=== PATIENT | female | born 1975 | race Caucasian/White ===

== ENCOUNTER 2017-02-11 14:35 | Emergency (ER) | payer OTHER | END 2017-02-11 15:41 | disposition home or self-care (01) | LOC: M ED 14:35 | DX: L02.01 Cutaneous abscess of face (principal); K02.9 Dental caries, unspecified; J44.9 Chronic obstructive pulmonary disease, unspecified; J45.909 Unspecified asthma, uncomplicated; F32.9 Major depressive disorder, single episode, unspecified; F17.200 Nicotine dependence, unspecified, uncomplicated; Z86.718 Personal history of other venous thrombosis and embolism; Z79.899 Other long term (current) drug therapy; Z88.6 Allergy status to analgesic agent; Z88.8 Allergy status to other drugs, medicaments and biological substances | CPT/HCPCS: 99282 ==

== ENCOUNTER 2017-03-24 22:31 | Emergency (ER) | payer OTHER ==
[2017-03-24 23:27] LABS: BASO # 0.1 10^3/uL (0.0-0.2); BASO % 0.5 % (0.0-1.0); EOS # 0.3 10^3/uL (0.0-0.50); HEMATOCRIT 42.5 % (36.0-47.0); HEMOGLOBIN 15.2 g/dl (12.0-16.0); IMMATURE GRANULOCYTE % 0.3 % (0-3.0); LYMPH # 3.3 10^3/uL (1.5-4.5); LYMPH % 35.5 % (24.0-44.0); MEAN CORPUSCULAR HEMOGLOBIN 33.3 pg (27.0-33.0); MEAN CORPUSCULAR HGB CONC 35.8 g/dl (32.0-36.5); MONO # 0.6 10^3/uL (0.0-0.8); MONO % 6.2 % (0.0-5.0); NEUTROPHILS % 54.5 % (36.0-66.0); PLATELET COUNT, AUTOMATED 227 10^3/uL (150-450); RED BLOOD COUNT 4.57 10^6/uL (4.00-5.40); WHITE BLOOD COUNT 9.2 10^3/uL (4.0-10.0)
[2017-03-24] MEDS: MORPHINE 2 MG/ML 1ML SYRINGE (J2270) IV (23:30)
[2017-03-24] MEDS ORDERED: ISOVUE-370 76% 100ML VIAL (Q9967) As Ordered (23:35)
[2017-03-24 23:52] LABS: ALBUMIN 3.6 GM/DL (3.2-5.2); ALBUMIN/GLOBULIN RATIO 0.92 (1.00-1.93); ALKALINE PHOSPHATASE 107 U/L (45-117); ALT/SGPT 11 U/L (12-78); ANION GAP 8 MEQ/L (8-16); AST/SGOT 7 U/L (7-37); BILIRUBIN,TOTAL 0.4 MG/DL (0.2-1.0); BLOOD UREA NITROGEN 9 MG/DL (7-18); CALCIUM LEVEL 8.2 MG/DL (8.5-10.1); CARBON DIOXIDE LEVEL 29 MEQ/L (21-32); CHLORIDE LEVEL 104 MEQ/L (98-107); CREATININE FOR GFR 0.63 MG/DL (0.55-1.30); GLOMERULAR FILTRATION RATE > 60.0 (>58); GLUCOSE, FASTING 315 MG/DL (70-100); POTASSIUM SERUM 3.8 MEQ/L (3.5-5.1); SODIUM LEVEL 141 MEQ/L (136-145); TOTAL PROTEIN 7.5 GM/DL (6.4-8.2)
[2017-03-25] MEDS: NS 1,000 ML IV (00:12)
[2017-03-25] MEDS ORDERED: HumuLIN R (REGULAR) INSULIN (NovoLIN R) **100U/ML** PER UNIT IV (00:15)
[2017-03-25] MEDS: PERCOCET 5MG/325MG TAB PO (01:37)
== END 2017-03-25 01:42 | disposition home or self-care (01) ==
LOC: M ED 03-25 01:42
DX: J32.9 Chronic sinusitis, unspecified (principal); R73.09 Other abnormal glucose; K08.89 Other specified disorders of teeth and supporting structures; J44.9 Chronic obstructive pulmonary disease, unspecified; M54.5 Low back pain; G89.29 Other chronic pain; F17.200 Nicotine dependence, unspecified, uncomplicated; Z88.8 Allergy status to other drugs, medicaments and biological substances; Z88.6 Allergy status to analgesic agent
CPT/HCPCS: Q9967

== ENCOUNTER 2017-06-05 18:59 | Emergency (ER) | payer OTHER | END 2017-06-05 21:20 | disposition left against medical advice (07) | LOC: M ED 18:59 | DX: K13.79 Other lesions of oral mucosa (principal); Z53.21 Procedure and treatment not carried out due to patient leaving prior to being seen by health care provider; Z88.6 Allergy status to analgesic agent; Z88.8 Allergy status to other drugs, medicaments and biological substances ==

== ENCOUNTER 2017-06-17 16:58 | Emergency (ER) | payer OTHER ==
[2017-06-17] MEDS: PENICILLIN V POTASSIUM 500 MG TAB PO (16:52)
[2017-06-17] MEDS: NORCO, ANEXSIA 5/325MG TABLET (HYDROcodone/ACETAMINOPHEN) PO (16:52)
== END 2017-06-17 17:25 | disposition home or self-care (01) ==
LOC: M ED 16:58
DX: K08.89 Other specified disorders of teeth and supporting structures (principal); F17.200 Nicotine dependence, unspecified, uncomplicated; Z88.8 Allergy status to other drugs, medicaments and biological substances; Z79.899 Other long term (current) drug therapy
CPT/HCPCS: 99282

== ENCOUNTER 2017-08-18 04:29 | Emergency (ER) | payer OTHER ==
[2017-08-18] MEDS: NORCO 5/325MG TABLET (BULK FOR ED) PO (05:34)
== END 2017-08-18 05:39 | disposition home or self-care (01) ==
LOC: M ED 04:29
DX: L02.411 Cutaneous abscess of right axilla (principal); J45.909 Unspecified asthma, uncomplicated; K21.9 Gastro-esophageal reflux disease without esophagitis; J44.9 Chronic obstructive pulmonary disease, unspecified; Z86.718 Personal history of other venous thrombosis and embolism; Z88.6 Allergy status to analgesic agent; Z88.8 Allergy status to other drugs, medicaments and biological substances; Z79.899 Other long term (current) drug therapy
CPT/HCPCS: 87186

== ENCOUNTER 2017-08-20 12:59 | Emergency (ER) | payer OTHER | END 2017-08-20 14:37 | disposition home or self-care (01) | LOC: M ED 12:59 | DX: Z48.01 Encounter for change or removal of surgical wound dressing (principal); L02.411 Cutaneous abscess of right axilla; J44.9 Chronic obstructive pulmonary disease, unspecified; K21.9 Gastro-esophageal reflux disease without esophagitis; F33.9 Major depressive disorder, recurrent, unspecified; Z86.718 Personal history of other venous thrombosis and embolism; Z79.899 Other long term (current) drug therapy; Z88.8 Allergy status to other drugs, medicaments and biological substances; F17.210 Nicotine dependence, cigarettes, uncomplicated | CPT/HCPCS: 99283 ==

== ENCOUNTER → 2017-08-29 | Outpatient (CLI) | payer OTHER ==
[2017-08-29 13:09] LABS: CONTROL LINE HCG INT CTR LINE PRESENT; HCG, SERUM QUALITATIVE NEGATIVE (NEGATIVE)
== END ==
LOC: M LAB 12:28
DX: Z30.42 Encounter for surveillance of injectable contraceptive (principal); N94.9 Unspecified condition associated with female genital organs and menstrual cycle
CPT/HCPCS: 84703

== ENCOUNTER 2017-09-14 12:00 | Emergency (ER) | payer OTHER | END 2017-09-14 15:51 | disposition left against medical advice (07) | LOC: M ED 12:00 | DX: Z51.89 Encounter for other specified aftercare (principal); Z53.21 Procedure and treatment not carried out due to patient leaving prior to being seen by health care provider ==

== ENCOUNTER 2017-09-16 14:07 | Emergency (ER) | payer OTHER ==
[2017-09-16] MEDS: LIDOCAINE W/EPINEPHRINE 1% 20ML VIAL SC (15:20)
== END 2017-09-16 15:56 | disposition home or self-care (01) ==
LOC: M ED 14:07
DX: L02.411 Cutaneous abscess of right axilla (principal); J44.9 Chronic obstructive pulmonary disease, unspecified; F32.9 Major depressive disorder, single episode, unspecified; Z86.718 Personal history of other venous thrombosis and embolism
CPT/HCPCS: 87186

== ENCOUNTER 2017-10-15 13:50 | Emergency (ER) | payer OTHER ==
[2017-10-15] MEDS: NORCO, ANEXSIA 5/325MG TABLET (HYDROcodone/ACETAMINOPHEN) PO (14:43)
== END 2017-10-15 14:54 | disposition home or self-care (01) ==
LOC: M ED 13:50
DX: R10.2 Pelvic and perineal pain (principal); L25.9 Unspecified contact dermatitis, unspecified cause; J45.909 Unspecified asthma, uncomplicated; F32.9 Major depressive disorder, single episode, unspecified; F17.210 Nicotine dependence, cigarettes, uncomplicated; Z88.6 Allergy status to analgesic agent; Z88.8 Allergy status to other drugs, medicaments and biological substances
CPT/HCPCS: 99284

== ENCOUNTER 2017-11-28 17:13 | Emergency (ER) | payer OTHER ==
[2017-11-28] MEDS: BACLOFEN 10 MG TAB PO (19:09)
== END 2017-11-28 20:03 | disposition home or self-care (01) ==
LOC: M ED 17:13
DX: Z04.1 Encounter for examination and observation following transport accident (principal); S13.4XXA Sprain of ligaments of cervical spine, initial encounter; V43.62XA Car passenger injured in collision with other type car in traffic accident, initial encounter; Y92.410 Unspecified street and highway as the place of occurrence of the external cause; J44.9 Chronic obstructive pulmonary disease, unspecified; F33.9 Major depressive disorder, recurrent, unspecified; K21.9 Gastro-esophageal reflux disease without esophagitis; F17.210 Nicotine dependence, cigarettes, uncomplicated; Z86.718 Personal history of other venous thrombosis and embolism; Z88.8 Allergy status to other drugs, medicaments and biological substances
CPT/HCPCS: 72125

== ENCOUNTER → 2017-12-04 | Outpatient (REF) | payer OTHER ==
[2017-12-04 22:04] LABS: APPEARANCE, URINE CLOUDY (CLEAR); BACTERIA, URINE AUTO 2+ (NEGATIVE); BILIRUBIN, URINE AUTO NEGATIVE (NEGATIVE); BLOOD, URINE BLOOD 3+ (NEGATIVE); COLOR, URINE YELLOW (YELLOW); GLUCOSE, URINE (UA) AUTO 3+ mg/dL (NEGATIVE); KETONE, URINE AUTO NEGATIVE (NEGATIVE); LEUKOCYTE ESTERASE, URINE AUTO 2+ (NEGATIVE); NITRITE, URINE AUTO NEGATIVE (NEGATIVE); PROTEIN, URINE AUTO 2+ mg/dL (NEGATIVE); RBC, URINE AUTO TNTC /HPF (0-3); SPECIFIC GRAVITY URINE AUTO 1.039 (1.002-1.035); SQUAMOUS EPITHELIAL CELL UR AU 1 /HPF (0-6); UROBILINOGEN, URINE AUTO 0.2 mg/dL (0.0-2.0); WBC, URINE AUTO TNTC /HPF (0-3)
== END ==
LOC: M LAB REF 10:22
DX: N39.0 Urinary tract infection, site not specified (principal)
CPT/HCPCS: 81001

== ENCOUNTER → 2018-02-15 | Outpatient (CLI) | payer OTHER ==
[~2018-02-15] MED LIST: /MOXI40TA PO; ADV250INH INH; ALB2.5NEB INH; ALBU17IN INH; ALBU83IN; AUGM500T34 PO; AUGM875T27 PO; AUGM875T28 PO; BACL10TA2 PO; BACT800T5 PO; CARD120C3 PO; CLIN150C14 PO; DUONSOL IN; IBUP-1114 PO; KEFL500C17 PO; METF500T13; METF500T13 PO; NORCOTAB PO; PENI250T57 PO; PERCOCET PO; PRED1TAB32 PO; PRIL20CA OR; SING10TA31 OR; SING10TA32 PO; TYLE325T5 PO; TYLE500T78 PO; VENTAER; [UNRECOGNIZED DRUG - OTHER] INH
[2018-02-15 13:53] LABS: HCG, SERUM QUALITATIVE NEGATIVE (NEGATIVE)
== END ==
LOC: M LAB 12:22
PROVIDERS: ATTEND Advanced Practice Midwife
DX: N92.6 Irregular menstruation, unspecified (principal)

== ENCOUNTER 2018-05-24 18:53 | Emergency (ER) | payer OTHER ==
[~2018-05-24] VITALS: Ht 162.6 cm; Wt 78.2 kg
[2018-05-24 18:53] VITALS: BP 143/66
[~2018-05-24 18:53] MED LIST changes: -/MOXI40TA PO; +AVEL1TAB2 PO; +HYDR-3715 PO; -NORCOTAB PO; +OXYC1TAB23 PO; -PERCOCET PO
[2018-05-24] MEDS ORDERED: SING10TA32 PO (18:58)
[2018-05-24] MEDS ORDERED: BACT800T5 PO (19:19)
[2018-05-24] MEDS ORDERED: NORC1TAB7 PO (19:19)
== END 2018-05-24 19:36 | disposition home or self-care (01) ==
LOC: M ED 18:53
DX: L02.411 Cutaneous abscess of right axilla (principal); J44.9 Chronic obstructive pulmonary disease, unspecified; J45.909 Unspecified asthma, uncomplicated; K21.9 Gastro-esophageal reflux disease without esophagitis; F33.9 Major depressive disorder, recurrent, unspecified; Z79.899 Other long term (current) drug therapy; Z88.8 Allergy status to other drugs, medicaments and biological substances

== ENCOUNTER 2018-05-31 19:33 | Emergency (ER) | payer OTHER ==
[~2018-05-31] VITALS: Ht 162.6 cm; Wt 78.2 kg
[~2018-05-31 19:33] MED LIST changes: +NORC1TAB7 PO
[2018-05-31] MEDS ORDERED: LIDOCAINE 2% W/EPIN INJ 20ML **PRES FREE As Ordered ONE (20:39)
[2018-05-31] MEDS ORDERED: LIDOCAINE 2% W/EPIN INJ 20ML **PRES FREE INJ ONE (20:45)
[2018-05-31] MEDS ORDERED: NORC1TAB7 PO (21:09)
[2018-05-31] MEDS ORDERED: NORCO 5/325MG TABLET (BULK FOR ED) PO ONE (21:15)
[2018-05-31 21:17] VITALS: BP 164/5
== END 2018-05-31 21:42 | disposition home or self-care (01) ==
LOC: M ED 19:33
DX: L02.411 Cutaneous abscess of right axilla (principal); J44.9 Chronic obstructive pulmonary disease, unspecified; Z86.718 Personal history of other venous thrombosis and embolism; F17.210 Nicotine dependence, cigarettes, uncomplicated; Z88.8 Allergy status to other drugs, medicaments and biological substances; Z79.899 Other long term (current) drug therapy

== ENCOUNTER 2018-08-27 21:45 | Emergency (ER) | payer OTHER ==
[~2018-08-27] VITALS: Ht 162.6 cm; Wt 77.4 kg
[2018-08-27 21:45] VITALS: BP 131/82
[2018-08-27 23:21] LABS: URINE PREG TEST NEGATIVE (NEGATIVE)
[2018-08-27] MEDS ORDERED: KEFL500C17 PO (23:27)
[2018-08-27] MEDS ORDERED: PYRI1TAB5 PO (23:27)
[2018-08-27] MEDS ORDERED: CEPHALEXIN 500 MG CAP PO ONE (23:30)
[2018-08-27] MEDS ORDERED: PHENAZOPYRIDINE 100 MG TAB PO ONE (23:30)
== END 2018-08-27 23:37 | disposition home or self-care (01) ==
LOC: M ED 21:45
DX: N10 Acute pyelonephritis (principal); J44.9 Chronic obstructive pulmonary disease, unspecified; Z85.41 Personal history of malignant neoplasm of cervix uteri; Z72.0 Tobacco use; Z79.899 Other long term (current) drug therapy; Z88.8 Allergy status to other drugs, medicaments and biological substances

== ENCOUNTER 2018-12-15 22:26 | Emergency (ER) | payer OTHER ==
[~2018-12-15] VITALS: Ht 162.6 cm; Wt 79.0 kg
[~2018-12-15 22:26] MED LIST changes: +PYRI1TAB5 PO
[2018-12-15 22:27] VITALS: BP 115/75
[2018-12-15] MEDS ORDERED: NORC1TAB7 PO (22:59)
[2018-12-15] MEDS ORDERED: PENI500T PO (22:59)
[2018-12-15] MEDS ORDERED: NORCO, ANEXSIA 5/325MG TABLET (HYDROcodone/ACETAMINOPHEN) PO ONE (23:00)
[2018-12-15] MEDS ORDERED: PENICILLIN V POTASSIUM 500 MG TAB PO ONE (23:00)
== END 2018-12-15 23:25 | disposition home or self-care (01) ==
LOC: M ED 22:26
DX: K04.7 Periapical abscess without sinus (principal); Z88.8 Allergy status to other drugs, medicaments and biological substances; Z79.51 Long term (current) use of inhaled steroids; Z79.899 Other long term (current) drug therapy

== ENCOUNTER 2019-01-11 16:55 | Inpatient (IN) | payer OTHER ==
[~2019-01-11] VITALS: Ht 163.8 cm; Wt 80.5 kg
[~2019-01-11 16:55] MED LIST changes: -ALBU83IN; +ALBU83IN INH; +PENI500T PO; -VENTAER; +VENTAER INH
[2019-01-11] MEDS ORDERED: ALBUTEROL SULFATE 2.5 MG/0.5 ML INH NEB SOLN As Ordered ONE (17:06)
[2019-01-11] MEDS ORDERED: IPRATROPIUM 0.5MG/ALBUTEROL 2.5MG INH SOL UD 3ML (DUONEB)(J7620) NEB ONE (17:15)
[2019-01-11 17:20] LABS: HEMATOCRIT 47.3 % (36.0-47.0); HEMOGLOBIN 15.6 g/dl (12.0-15.5); MEAN CORPUSCULAR HEMOGLOBIN 32.2 pg (27.0-33.0); MEAN CORPUSCULAR VOLUME 97.7 fl (80.0-96.0); PLATELET COUNT, AUTOMATED 357 10^3/uL (150-450); RED BLOOD COUNT 4.84 10^6/uL (4.00-5.40)
[2019-01-11 17:23] LABS: WHITE BLOOD COUNT 17.6 10^3/uL (4.0-10.0)
[2019-01-11] MEDS ORDERED: fentaNYL 100 MCG/2 ML INJECTION (J3010) As Ordered ONE (17:32)
[2019-01-11 17:38] LABS: INR 1.21
[2019-01-11] MEDS ORDERED: PIPERACILLIN/TAZOBACTAM SOD 4.5 GM in D5W MINI-BAG PLUS 50 ML IV ONE (17:45)
[2019-01-11] MEDS ORDERED: ONDANSETRON 4MG/2ML VIAL (J2405) IV ONE ×2 (17:45→18:45)
[2019-01-11] MEDS ORDERED: fentaNYL 100 MCG/2 ML INJECTION (J3010) IV ONE ×2 (17:45→18:30)
[2019-01-11] MEDS ORDERED: ISOVUE-370 76% 100ML VIAL (Q9967) As Ordered ONE (17:47)
[2019-01-11 17:51] LABS: ATYPICAL LYMPH 7 % (0-5); BASOPHILS 1 % (0-1); LYMPHOCYTES 36 % (16-44); METAMYELOCYTES 1 % (0-0); MONOCYTES 1 % (0-5); NEUTROPHILS 52 % (28-66); PLATELET ESTIMATE NORMAL (NORMAL)
--- NOTE | 2019-01-11 17:55 | REP ---
AP PORTABLE CHEST: 01/11/2019. Clinical history: Dyspnea and cough. Comparison: 11/05/2013. Findings: Portable upright chest shows some left ventricular configuration of the heart. There is some venous hypertension. I see no dense consolidation with air bronchograms. There are a few cuffed bronchi in the perihilar regions that may reflect reactive airway disease or bronchitis. The airway and aorta were unremarkable. There is no widening of the mediastinum. The CP angles appear sharply defined. Bones are unremarkable. Impression: 1. Perihilar changes of bronchitis or reactive airway disease with some mild venous hypertension, prominence of the cardiac silhouette which may be exaggerated by technique and no edema, effusion or dense consolidation. Electronically Signed by Maverick Lipscomb MD 01/11/2019 08:02 P
[2019-01-11 18:03] LABS: ALBUMIN 3.3 GM/DL (3.2-5.2); ALT/SGPT 38 U/L (12-78); BILIRUBIN,DIRECT 0.1 MG/DL (0.0-0.2); BILIRUBIN,TOTAL 0.3 MG/DL (0.2-1.0); BLOOD UREA NITROGEN 6 MG/DL (7-18); CALCIUM LEVEL 8.4 MG/DL (8.5-10.1); CARBON DIOXIDE LEVEL 24 MEQ/L (21-32); CHLORIDE LEVEL 103 MEQ/L (98-107); CK-MB VALUE MASS < 1.0 NG/ML (<3.6); CPK CREATINE PHOSPHOKINASE 72 U/L (26-192); CREATININE FOR GFR 0.79 MG/DL (0.55-1.30); GLOMERULAR FILTRATION RATE > 60.0 (>58); GLUCOSE, FASTING 410 MG/DL (70-100); MB/CK RELATIVE INDEX 1.39 (< OR =4); NT-PRO BNP 2594 PG/ML (<125); POTASSIUM SERUM 4.2 MEQ/L (3.5-5.1); SODIUM LEVEL 138 MEQ/L (136-145); TOTAL PROTEIN 7.2 GM/DL (6.4-8.2); TROPONIN I < 0.02 NG/ML (< 0.10)
[2019-01-11] MEDS ORDERED: NS 1,000 ML IV ONE ×3 (18:15→18:45)
[2019-01-11] MEDS ORDERED: HumuLIN R (REGULAR) INSULIN (NovoLIN R) **100U/ML** PER UNIT IV ONE (18:15)
--- NOTE | 2019-01-11 18:41 | REPVR ---
PROCEDURE INFORMATION: Exam: CT Chest With Contrast Exam date and time: 01/11/2019 5:44 PM Age: 43 years old Clinical history: Other: Hypoxia TECHNIQUE: Imaging protocol: Computed tomography of the chest with intravenous contrast. Radiation optimization: All CT scans at this facility use at least one of these dose optimization techniques: automated exposure control; mA and/or kV adjustment per patient size (includes targeted exams where dose is matched to clinical indication); or iterative reconstruction. Contrast material: ISOVUE 370; Contrast volume: 100 ml; Contrast route: IV; COMPARISON: CR PORTABLE CHEST X-RAY 01/11/2019 5:08 PM FINDINGS: Lungs: Bilateral small patchy pulmonary parenchymal infiltrates, left greater than right, the largest infiltrate demonstrated in the anterior segment of the multiple lobe measuring 2.9 x 2.3 x 1.8 cm. Findings consistent with multifocal pneumonitis. Pleural space: Unremarkable. No pneumothorax. No pleural effusion. Heart: Left ventricular enlargement associated with mild enlargement of the left atrium measuring 4.2 cm maximal anterior posterior dimension. There is bowing of the interventricular septum into to the right ventricle. Aorta: Unremarkable. No aortic aneurysm. Lymph nodes: Bilateral hilar lymphadenopathy, right greater than left. Bones/joints: Unremarkable. No acute fracture. Soft tissues: Unremarkable. IMPRESSION: 1. Findings consistent with multifocal pneumonitis. Embolic etiologies not excluded. 2. Bilateral hilar lymphadenopathy, right greater than left. 3. Left ventricular and left atrial enlargement, findings which can BE associated with ischemic heart disease, valvular heart disease and cardiomyopathy. Electronically signed by: Lance Oliva On 01/11/2019 18:40:55 PM
--- NOTE | 2019-01-11 18:44 | REPVR ---
PROCEDURE INFORMATION: Exam: CT Abdomen And Pelvis With Contrast Exam date and time: 01/11/2019 5:47 PM Age: 43 years old Clinical history: Other: Hypotension; Additional info: Hypotensive TECHNIQUE: Imaging protocol: Computed tomography of the abdomen and pelvis with intravenous contrast. Radiation optimization: All CT scans at this facility use at least one of these dose optimization techniques: automated exposure control; mA and/or kV adjustment per patient size (includes targeted exams where dose is matched to clinical indication); or iterative reconstruction. Contrast material: ISOVUE 370; Contrast volume: 100 ml; Contrast route: IV; COMPARISON: CT ABD PELVIS WITH CONTRAST 11/06/2015 11:53 PM FINDINGS: Liver: There is a diffuse decrease in hepatic parenchymal density, consistent with fatty infiltration. Gallbladder and bile ducts: There has been a cholecystectomy. Pancreas: There is mild diffuse pancreatic atrophy. Spleen: Normal. No splenomegaly. Adrenals: Normal. No mass. Kidneys and ureters: Normal. No hydronephrosis. Stomach and bowel: Dilated loops of small bowel demonstrated in the mid abdomen associated with a boggy appearance and reduced caliber of the right and proximal transverse colon, findings possibly ischemic related. Small bowel obstruction not excluded. Appendix: No evidence of appendicitis. Intraperitoneal space: Unremarkable. No free air. No significant fluid collection. Vasculature: The aorta demonstrates mild atherosclerotic calcification. Lymph nodes: Unremarkable. No enlarged lymph nodes. Bladder: Santiago catheter within a collapsed urinary bladder. Air within the bladder consistent with iatrogenic etiology. Reproductive: Unremarkable as visualized. Bones/joints: Unremarkable. No acute fracture. Soft tissues: Unremarkable. IMPRESSION: 1. There is a diffuse decrease in hepatic parenchymal density, consistent with fatty infiltration. 2. There has been a cholecystectomy. 3. There is mild diffuse pancreatic atrophy. 4. Dilated loops of small bowel demonstrated in the mid abdomen associated with a boggy appearance and reduced caliber of the right and proximal transverse colon, findings possibly ischemic related. Small bowel obstruction not excluded. Electronically signed by: Lance Oliva On 01/11/2019 18:44:32 PM
[2019-01-11] MEDS ORDERED: ATROPINE SULF 0.4 MG/ML 1ML VIAL (J0461) IV PRN (19:15)
[2019-01-11] MEDS ORDERED: VANCOMYCIN HCL 1,000 MG, VIAL MATE ADAPTER 1 EACH in D5W 250 ML IV SCH (19:15)
[2019-01-11] MEDS ORDERED: AZITHROMYCIN INJ 500 MG, VIAL MATE ADAPTER 1 EACH in D5W 250 ML IV SCH (19:15)
[2019-01-11] MEDS ORDERED: ACETAMINOPHEN TAB 650MG DOSE (2X325MG) PO PRN (19:15)
[2019-01-11] MEDS ORDERED: LR 1,000 ML IV SCH (19:15)
--- NOTE | 2019-01-11 19:34 | HPEPDOC ---
[facility] Medical History & Physical Date of Admission Jan 11, 2019 Date of Service: Jan 11, 2019 Other Provider Tere VILLATORO Attending Physician: MALI PIPER MD History and Physical TIME OF SERVICE: 7:55 PM CHIEF COMPLAINT: Cardiac arrest HISTORY OF PRESENT ILLNESS: The majority of the history is obtained from the patient's who witnessed the event; her mother and several the relatives also the bedside. This is a 43-year-old female who is been having a dry cough, runny nose, and shortness of breath for the last few days; one of her grandchildren has a "viral infection". She has a history of asthma and has been using her nebulizers more frequently. This evening while eating dinner, she suddenly choked on her food, had a lost consciousness, "had a seizure", and vomited. Her turned her onto her side and called EMS. When EMS arrived, they noted that the patient didn't have a pulse and began CPR. She regained consciousness after receiving 1 Shock. Currently the patient is complaining of chest pain, which her attributes to the the rest compressions", back pain and admits to still feeling short of breath. She denies being less active recently because of her URI symptoms. She confirmed that she would like to remain full code. REVIEW OF SYSTEMS: 12 point review of systems negative except as listed in HPI PAST MEDICAL/ SURGICAL HISTORY: Asthma Fatty liver. Status post laparoscopic cholecystectomy Her family denied the patient having any other medical or surgical history SOCIAL HISTORY: She is a smoker FAMILY HISTORY: Her mother has CAD and recently had CABG Multiple family members have heart murmurs. Diabetes "Thyroid disorder" ALLERGIES: Please see below. HOME MEDICATIONS: Please see below. PHYSICAL EXAMINATION: VITAL SIGNS: Please see below. GENERAL APPEARANCE: Well-nourished, well-developed, slightly listless HEENT: Normocephalic, atraumatic, she has mild conjunctival injection, mucous membranes are dry she has tried vomitus around her nares and on her hair. Nonrebreather mask is in place. CARDIOVASCULAR: Slightly tachycardic. There are no murmurs, rubs or gallops. Radial pulses are intact. There is no lower extremity edema LUNGS: She has decreased air entry bilaterally, along with inspiratory wheezing and rhonchi ABDOMEN: Abdomen is soft and nontender on palpation MUSCULOSKELETAL: Range of motion is intact in all 4 extremities INTEGUMENT:Her skin is not flushed, she does not appear pale, she has multiple tattoos NEUROLOGICAL:Nerves II-12 are grossly intact. Speech is not dysarthric PSYCHIATRIC:Heart and oriented to person, place and time. She is able to understand and follow commands. Verbal responses a bit slow LABORATORY DATA: See below. IMAGING: Chest x-ray "Impression: Perihilar changes of bronchitis or reactive airway disease with some mild venous hypertension, prominence of the cardiac silhouette which may be exaggerated by technique and no edema, effusion or dense consolidation. CT chest "IMPRESSION: 1. Findings consistent with multifocal pneumonitis. Embolic etiologies not excluded. 2. Bilateral hilar lymphadenopathy, right greater than left. 3. Left ventricular and left atrial enlargement, indings which can BE associated with ischemic heart disease, valvular heart disease and cardiomyopathy. CT abdomen and pelvis "IMPRESSION: 1. There is a diffuse decrease in hepatic parenchymal density, consistent with fatty infiltration. 2. There has been a cholecystectomy. 3. There is mild diffuse pancreatic atrophy. 4. Dilated loops of small bowel demonstrated in the mid abdomen associated with a boggy appearance and reduced caliber of the right and proximal transverse colon, fi ndings possibly ischemic related. Small bowel obstruction not excluded. " MICROBIOLOGY: Please see below. ASSESSMENT: Ms. Mccormack is a 43-year-old with a past medical history of asthma/COPD, who will be admitted for evaluation after having V. fib arrest and for treatment of asthma/COPD exacerbation. PLAN: 1. Sudden cardiac arrest. Likely due to excessive use of nebulizers due to an asthma exacerbation. Despite her troponin not being elevated, she has lactic acidosis; there is also evidence of cardiomyopathy on CT scan of the chest and ischemia of the bowel and CT the abdomen. EKGs, tachycardia with showed frequent PVCs and trigeminy / per Dr. 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 Plan: Admit to ICU/telemetry/cardiology consult ( per discussion with Dr. Thomas we will avoid giving additional beta adrenergic agents) /follow-up serial troponins, TSH, lipid panel, A1c and echocardiogram/will ask nursing staff to k eep subcutaneous pacers and atropine at the bedside 2. Asthma/COPD Exacerbation likely 2/2 Viral URI/ aspiration pneumonitis ? The asthma exacerbation was likely due to viral infection as one of her grandchildren has been sick. She has developed aspiration pneumonitis as well. ABG, chest x-ray and CT reviewed Plan: Continue with Ventimask/aspiration precautions/pulse oximetry/follow-up repeat ABG in the morning continue with Zosyn and levofloxacin/follow-up respiratory panel, blood cultures, sputum cultures, strep and urine Legionella/ she received 1 g of mag sulfate / per discussion with Dr. Thomas will avoid additional beta adrenergic agents 3. SIRS/Sepsis Secondary to cardiac arrest and upper respiratory tract infection. SIRS criteria include tachycardia, tachypnea, and leukocytosis The lactic acid is elevated She has hyperglycemia but the family denies a history of diabetes Plan: Monitor vitals/continue IV fluids and antibiotics/trend lactic acid 4. Mixed Acid Base Disturbance She may have respiratory acidosis 2/2 to the asthma exacerbation, metabolic acidosis 2/2 the infection and SCA + metabolic alkalosis 2/2 emesis Plan: f/u BMP and ABG in the morning 5. Hyperglycemia. She received insulin in the ER. Plan follow-up Accu-Cheks, serum acetone, A1c, sliding scale insulin with hypoglycemia protocol 6.Obesity complicates care Plan: f/u w PCP for cost control supervisor referral and STOPBANG questionnaire DVT prophylaxis with heparin. Disposition likely home after more than 2 midnight stay Vital Signs Vital Signs Date Time Temp Pulse Resp B/P (MAP) Pulse Ox O2 Delivery O2 Flow Rate FiO2 01/11/19 19:05 109 18 86/67 (73) 100 Non-Rebreather 15.0 01/11/19 17:05 96.8 Laboratory Data Labs 24H Laboratory Tests 2 01/11/19 17:04: Lymphocytes # (Auto) , Nucleated Red Blood Cells % (auto) 0.0, Neutrophils 52, Band Neutrophils 2, Lymphocytes (Manual) 36, Monocytes (Manual) 1, Basophils (Manual) 1, Metamyelocytes 1H, Atypical Lymphocytes 7H, Red Blood Cell Morphol ogy NORMAL, Platelet Estimate NORMAL, Prothrombin Time 15.0H, Prothromb Time International Ratio 1.21, Anion Gap 11, Glomerular Filtration Rate > 60.0, Lactic Acid Level 5.5*H, Calcium Level 8.4L, Magnesium Level 2.2, Total Bilirubin 0.3, Direct Bilirubin 0.1, Aspartate Amino Transf (AST/SGOT) 50H, Alanine Aminotransferase (ALT/SGPT) 38, Alkaline Phosphatase 107, Total Creatine Kinase 72, Creatine Kinase MB < 1.0, Creatine Kinase MB Relative Index 1.39, Troponin I < 0.02, EJ-[id number]-Type Natriuretic Peptide 2594H, Total Protein 7.2, Albumin 3.3, Albumin/Globulin Ratio 0.85L, Thyroid Stimulating Hormone (TSH) 9.330H 01/11/19 17:15: POC Glucose (Misc Panel) 429H, POC Sodium (Misc Panel) 137, POC Potassium (Misc Panel) 3.9, POC Chloride (Misc Panel) 102, POC Total CO2 (Misc Panel) 23.0, POC Blood Urea Nitrogen (Misc Panel 4L, POC Ionized Calcium (Misc Panel) 4.5, POC Creatinine (Misc Panel) 0.4L, POC Hematocrit (Misc Panel) 48.0 01/11/19 17:26: POC Total CO2 (Misc Panel) 24.0, POC pH (Misc Panel) 7.300L, POC Base Excess (Misc Panel) -4.0L, POC Saturated Percent O2 (Misc) 99H, POC pO2 (Misc Panel) 164.0H, POC pCO2 (Misc Panel) 46.5H, POC HCO3 (Misc Panel) 22.9 CBC/BMP Laboratory Tests 01/11/19 17:04 Microbiology Microbiology 01/11/19 Blood Culture, Received Pending 01/11/19 Blood Culture, Received Pending Home Medications Scheduled PRN Albuterol Sulf (Albuterol Sulfate) 2.5 Mg/3 Ml Nebu, 1 INH INH Q4H PRN for SOB/WHEEZING Albuterol Sulfate (Ventolin Hfa) 108 Mcg/Act Aer, 2 PUFFS INH Q4H PRN for SOB/WHEEZING Allergies Coded Allergies: aspirin (Verified Adverse Reaction, Mild, N/V, 12/15/18) prednisone (Verified Adverse Reaction, Mild, N/V, 12/15/18) A-FIB/CHADSVASC A-FIB History Current/History of A-Fib/PAF?: No Current PO Anticoag Therapy: No MALI PIPER MD Jan 11, 2019 19:34
[2019-01-11] MEDS ORDERED: LEVALBUTEROL 1.25 MG/0.5 ML CONCENTRATE NEB NEB PRN (19:45)
[2019-01-11] MEDS ORDERED: methylPREDNISolone INJ 125 MG/2 ML VIAL (J2930) IV ONE (20:00)
[2019-01-11] MEDS ORDERED: MAG SULF 1GM/100ML (MAG RUN) 1 GM in IV 1 EA IV ONE (20:00)
[2019-01-11] MEDS ORDERED: IPRATROPIUM 0.5MG/ALBUTEROL 2.5MG INH SOL UD 3ML (DUONEB)(J7620) NEB SCH (20:00)
--- NOTE | 2019-01-11 20:09 | ECGEPIP ---
[facility] - ED Test Date: 2019-01-11 Pat Name: TEMI JACOB Department: Room: - Gender: Female Assistant Quality Manager: TC : 1975 Requested By: Shi Wolf Order Number: [id number] Reading MD: Shi Wolf Measurements Intervals [place] Rate: 129 P: 75 SD: 140 QRS: 95 QRSD: 103 T: 30 QT: 314 QTc: 460 Interpretive Statements SINUS TACHYCARDIA WITH FREQUENT VENTRICULAR PREMATURE COMPLEXES INDETERMINATE AXIS LOW QRS VOLTAGE IN PRECORDIAL LEADS ANTEROSEPTAL MYOCARDIAL INFARCTION, OF INDETERMINATE AGE CLINICAL CORRELATION NO PRIOR Electronically Signed on 01-11-2019 20:09:16 EST by Shi Wolf
[2019-01-11] MEDS: PANTOPRAZOLE 40MG TAB (PROTONIX) PO SCH (20:31)
[2019-01-11] MEDS ORDERED: DEXTROSE 50% 50 ML SYRINGE IV PRN (20:45)
[2019-01-11] MEDS ORDERED: GLUCAGON FOR INJ 1 MG VIAL (J1610) SC PRN (20:45)
[2019-01-11] MEDS ORDERED: GLUCOSE 4 GM CHEW TABLET PO PRN (20:45)
[2019-01-11] MEDS ORDERED: HumaLOG INSULIN (NovoLOG) PER UNIT SC SCH (21:00)
[2019-01-11 21:12] LABS: D-DIMER QUANT 3329.94 ng/ml (<500)
[2019-01-11 21:15] VITALS: BP 104/61
[2019-01-11] MEDS ORDERED: ACETAMINOPHEN 500 MG TAB PO PRN (21:15)
[2019-01-11 21:30] VITALS: BP 101/55
[2019-01-11 22:00] VITALS: BP 94/69
[2019-01-11] MEDS ORDERED: cefTRIAXone SOD 2 GM in D5W MINI-BAG PLUS 50 ML IV SCH (22:00)
[2019-01-11 22:04] LABS: HEMOGLOBIN A1c 9.1 %
[2019-01-11 22:23] LABS: INFLUENZA A AMPLIFICATION NEGATIVE (NEGATIVE); INFLUENZA B AMPLIFICATION NEGATIVE (NEGATIVE)
[2019-01-11 22:30] VITALS: BP 95/63
[2019-01-11 22:37] LABS: ACETONE/KETONE 1.25 MG/DL (<2.81); ALT/SGPT 40 U/L (12-78); BILIRUBIN,TOTAL 0.5 MG/DL (0.2-1.0); BLOOD UREA NITROGEN 6 MG/DL (7-18); CALCIUM LEVEL 7.3 MG/DL (8.5-10.1); CARBON DIOXIDE LEVEL 26 MEQ/L (21-32); CHLORIDE LEVEL 110 MEQ/L (98-107); CHOLESTEROL LEVEL 140 MG/DL (<200); CHOLESTEROL RISK RATIO 4.117 (<5); CREATININE FOR GFR 0.58 MG/DL (0.55-1.30); GLOMERULAR FILTRATION RATE > 60.0 (>58); GLUCOSE, FASTING 230 MG/DL (70-100); HDL CHOLESTEROL 34 MG/DL (>40); LDL CHOLESTEROL 89 MG/DL (<100); NON-HDL-C 106 MG/DL; POTASSIUM SERUM 4.2 MEQ/L (3.5-5.1); SODIUM LEVEL 143 MEQ/L (136-145); TOTAL PROTEIN 6.4 GM/DL (6.4-8.2); TRIGLYCERIDES LEVEL 87 MG/DL (<150); TROPONIN I 0.17 NG/ML (< 0.10)
[2019-01-11 23:00] VITALS: BP 105/68
[2019-01-11] MEDS: PIPERACILLIN/TAZOBACTAM SOD 4.5 GM in D5W MINI-BAG PLUS 100 ML IV SCH (23:25)
[2019-01-11 23:30] VITALS: BP 108/70
[2019-01-12] VITALS (11 sets, daily range): BP systolic 91–113; BP diastolic 57–74
[2019-01-12] MEDS ORDERED: LevoFLOXacin IV 750 MG in IV 1 EA IV SCH (01:00)
[2019-01-12 06:14] LABS: ABG BASE EXCESS -2.7 (-2.0-2.0); ABG O2 SATURATION 95.3 % (95.0-99.0); ABG PARTIAL PRESSURE CO2 33.7 mmHg (35.0-45.0); ABG PARTIAL PRESSURE O2 73.4 mmHg (75.0-100.0); ABG STANDARD HCO3 22.2 MEQ/L (22.0-26.0); ABG TOTAL CO2 22.1 MEQ/L (22.0-29.0); ABG pH (ARTERIAL) 7.413 UNITS (7.350-7.450)
[2019-01-12] MEDS: PIPERACILLIN/TAZOBACTAM SOD 4.5 GM in D5W MINI-BAG PLUS 100 ML IV SCH ×2 (06:16→12:23)
[2019-01-12 06:30] LABS: HEMATOCRIT 46.2 % (36.0-47.0); HEMOGLOBIN 14.8 g/dl (12.0-15.5); MEAN CORPUSCULAR HEMOGLOBIN 31.7 pg (27.0-33.0); MEAN CORPUSCULAR VOLUME 98.9 fl (80.0-96.0); RED BLOOD COUNT 4.67 10^6/uL (4.00-5.40); WHITE BLOOD COUNT 18.1 10^3/uL (4.0-10.0)
[2019-01-12 06:31] LABS: PLATELET COUNT, AUTOMATED 208 10^3/uL (150-450)
[2019-01-12 06:38] LABS: ALBUMIN 2.8 GM/DL (3.2-5.2); ALT/SGPT 37 U/L (12-78); BILIRUBIN,TOTAL 0.6 MG/DL (0.2-1.0); BLOOD UREA NITROGEN 7 MG/DL (7-18); CALCIUM LEVEL 7.5 MG/DL (8.5-10.1); CARBON DIOXIDE LEVEL 21 MEQ/L (21-32); CHLORIDE LEVEL 107 MEQ/L (98-107); CREATININE FOR GFR 0.52 MG/DL (0.55-1.30); GLOMERULAR FILTRATION RATE > 60.0 (>58); GLUCOSE, FASTING 304 MG/DL (70-100); MAGNESIUM LEVEL 2.1 MG/DL (1.8-2.4); POTASSIUM SERUM 4.3 MEQ/L (3.5-5.1); SODIUM LEVEL 137 MEQ/L (136-145); TOTAL PROTEIN 6.8 GM/DL (6.4-8.2); TROPONIN I 0.18 NG/ML (< 0.10)
[2019-01-12] MEDS ORDERED: KETOROLAC 30 MG/ML VIAL (J1885) IV PRN (07:45)
[2019-01-12] MEDS ORDERED: ALBUTEROL SULFATE 2.5 MG/0.5 ML INH NEB SOLN NEB SCH (08:00)
[2019-01-12] MEDS ORDERED: BUDESONIDE 0.25 MG/2 ML INHALATION SUSPENSION INH SCH (08:00)
[2019-01-12] MEDS: HumaLOG INSULIN (NovoLOG) PER UNIT SC SCH ×2 (08:40→12:24)
[2019-01-12] MEDS: PANTOPRAZOLE 40MG TAB (PROTONIX) PO SCH (08:52)
[2019-01-12] MEDS ORDERED: ENOXAPARIN 40 MG/0.4 ML SYRINGE (J1650) SC SCH (09:00)
[2019-01-12] MEDS ORDERED: LEVEMIR (INSULIN DETEMIR) 1 UNITS/0.01ML SC SCH (09:00)
[2019-01-12] MEDS ORDERED: predniSONE 20 MG TAB PO SCH (09:00)
--- NOTE | 2019-01-12 11:15 | ECHO ---
DATE OF PROCEDURE: 01/12/2019 DATE OF : 1975 AGE: 43 GENDER: Female HEIGHT: 65 inches WEIGHT: 172 pounds BODY SURFACE AREA: 1.85 meters squared INPATIENT: Intensive care unit (ICU), room 3202 REFERRING PHYSICIAN: Dr. Elin Rosas INDICATION: Postcardiac arrest/abnormal EKG. MEASUREMENTS: 2D Measurements: RV: 3.6 cm LV: 5.8 cm Septum: 1.0 cm Posterior wall: 1.0 cm Aortic root: 3.1 cm LA: 4.6 cm LVEF: 20% DOPPLER MEASUREMENTS: AV: 1.13 meters per second LVOT: 0.75 meters per second LVOT diameter: 2.0 cm MV-E: 79, A: 94, EA ratio: 0.8 E prime medial: 7.5, A prime medial: 5.5, E prime lateral: 5.7. Average E/E prime ratio: 12; PCWP 16.7 mmHg PV: 0.7 meters per second Pulmonary artery acceleration time: 99 milliseconds RVSP: 37 mmHg IVC: 2.0 cm COMMENTS: Normal sinus rhythm with interventricular conduction disturbance. Frequent isolated premature ventricular contractions (PVCs) and occasional ventricular couplet. M-mode and two-dimensional echocardiography was performed with pulsed, continuous wave, color flow and tissue Doppler studies. At least mildly dilated left ventricle with dyskinesis of the apex, akinesis of the septum and anterior wall with hypokinesis of the distal inferior and lateral galicia but preserved proximal inferior and lateral wall motion. Severe impairment of global resting systolic function - findings in keeping with prior anterior wall myocardial infarction. Moderately dilated left atrium with grade 1 LV diastolic dysfunction and current estimated mean left atrial pressure, mildly elevated. Normal right heart chamber sizes and motion with Doppler evidence of mild pulmonary hypertension. Slightly dilated IVC with normal respiratory collapse against an elevated central venous pressure. Normal appearing aortic valve structure with adequate cusp separation but premature cusp closure in keeping with reduced forward stroke volume. Normal aortic root size. Slightly thickened mitral annulus with "low flow" appearance to leaflet excursion but no posterior systolic buckling. Mild mitral insufficiency. Normal appearing tricuspid valve with very mild insufficiency. No apparent intracardiac mass. Very small posterior pericardial effusion.
[2019-01-12 11:30] LABS: CHOLESTEROL LEVEL 116 MG/DL (<200); CHOLESTEROL RISK RATIO 2.577 (<5); HDL CHOLESTEROL 45 MG/DL (>40); LDL CHOLESTEROL 62 MG/DL (<100); NON-HDL-C 71 MG/DL; TRIGLYCERIDES LEVEL 43 MG/DL (<150)
[2019-01-12] MEDS ORDERED: CLOPIDOGREL 75 MG TAB PO STA (12:31)
[2019-01-12] MEDS ORDERED: ATORVASTATIN 20 MG TAB PO ONE (12:45)
--- NOTE | 2019-01-12 13:52 | CR ---
DATE OF CONSULTATION: 01/12/2019 CARDIOLOGY CONSULTATION REFERRING PHYSICIAN: Dr. Elin Rosas PRIMARY CARE PROVIDER: Tere Gotti, Nurse Practitioner at [facility] here in [place]. INDICATION: Status post cardiac arrest/abnormal EKG/radiographic cardiomegaly. HISTORY: This 43-year-old mother of six grown children, caring for two grandchildren, resident of [place], has been disabled because of wheezy bronchitis/asthma. However, she has been able to have children, care for her grandchildren, shop, do her own house cleaning and climb a flight of stairs. Has had no known cardiac history. Apparently was sitting having just fed her granddaughter when she bent over to play with the child when her noticed she collapsed to the ground unconscious with agonal respiration. Emergency medical services (EMS) were summoned and upon their prompt presentation, she was found unresponsive, apneic and pulseless. Immediate cardiopulmonary resuscitation (CPR) was started. Initial monitor strip showed ventricular fibrillation. The patient was given a single direct current shock, 360 joules, with developement of a regular wide complex ventricular rhythm yet initially remained pulseless; CPR was continued. Within minutes a spontaneous pulse was detected and ekg monitor tech showed sinus tachycardia with premature ventricular contractions (PVCs). Blood pressure recorded 150/98. She was confused, but consious. Transported to [facility] emergency room, initial recorded vital signs of showed , blood pressure 118/83, respiratory rate 17, oxygen (O2) saturation of 98% on supplemental oxygen, and she was afebrile. While in the emergency room, she became more cooperative, complaining of chest tenderness following her chest compression. Remained slightly confused, but was able to ask questions and speak appropriately. She was admitted to the intensive care unit and cardiology consultation was placed. KNOWN CARDINAL CARDIAC SYMPTOMS: Chest pain: Has had a very longstanding gastroesophageal reflux self medicated with Tums. Prior upper gastrointestinal (GI) series but no endoscopy. Has occasional dysphagia but no history of GI bleeding. Denies any awareness of effort related chest, jaw, or arm discomforts. Unaware of an abnormal EKG. Last available tracing 10/29/2011, when she presented for an exacerbation of her asthma showed sinus tachycardia with right axis deviation, somewhat low voltages and subtle nonspecific ST/T-wave abnormalities. No prior stress testing. Shortness of breath: Grew up with secondhand smoke and started smoking herself at age 16. Had been smoking up to two packs per day but more recently has been cutting down, currently one-half pack daily. Longstanding history of "asthma". Describes cough productive of greenish sputum. No history of hemoptysis. Prior hospitalizations for pneumonia, last time 2 years ago. Does have variable effort dyspnea but also limited by back pain and sciatica. Has been sleeping with two pillows for many years. Denies orthopnea or nocturnal dyspnea. Nocturia once or twice nightly is chronic. Unaware of prior rheumatic fever, heart murmur, hypertension or cardiomegaly. Last available chest x-ray 11/05/2013 showed heart size upper limits of normal with CT ratio of 13.5:27.9. History of weight problem of some longstanding (weighed 82 pounds at age 18, max weight 240 pounds last year, has lost a considerable amount of weight, currently 165 pounds with dietary measures and initially brief use of [id number] rehabilitation services aide). Her effort dyspnea has dramatically improved with her weight loss. Palpitations: Has never had an awareness of her heart action. No prior documented rhythm disturbance. No family history of premature sudden cardiac or congenital deafness. Drinks only occasional caffeinated beverage, perhaps 3-5 a week. Avoids alcohol. No history of thyroid dysfunction. Smoking as mentioned above. Prior use of [facility]-ur[facility]-[id number] rehabilitation services aide but avoids decongestants. Uses albuterol and Singulair for her asthma. Claims not to abuse this even recently with upper respiratory tract infection. Near syncope/syncope: Has a history of positional lightheadedness and longstanding history of fainting since teenage with at least four prior collapses without significant injury. Her last episode was approximately 2 years ago, associated with a GI illness. No history of seizure in the past, but did have an observed seizure with her cardiac arrest yesterday. Embolic phenomenon: Denies lateralizing neurological deficit, flank pain, hematuria or blue-toe syndrome. Claudication/peripheral venous disease: Denies history of claudication or effort related calf discomfort. Does have low back pain and discomfort that radiates down usually her left leg, not predictable with effort. History of deep venous thrombosis 8 years ago with a brief oral anticoagulation course. Occasional foot swelling, less with her weight loss. CORONARY RISK FACTORS: Still menstruating. Longstanding lifelong heavy smoker. Documented non-insulin dependent diabetes 1 year ago, initially treated but stopped her medication. No history of hypertension, hypercholesterolemia, or family history of premature coronary heart disease. OTHER PAST MEDICAL/SURGICAL HISTORY: Six normal vaginal deliveries. Four prior dilation and curettages (D and C). Cholecystectomy 1993. Loop electrosurgical excision procedure (LEEP) procedure for abnormal cervical cell smear 1996. Followup has been benign. Obesity. Longstanding gastroesophageal reflux. Smoking- induced wheezy bronchitis. History of vasovagal syncope. Remote deep venous thrombosis. Degenerative disc disease with sciatica. Prior pyelonephritis August 2018. Apical tooth abscess December 2018. History of major depression. Uncomplicated pregnancies. SYSTEMS REVIEW: Has only occasional headaches. No visual disturbance or hearing problems. Has lost most of her teeth. No history of abdominal pains or regular bowel habit or GI bleeding. Environmental allergies. All other systems review is negative other than that discussed above. MEDICATIONS: At home, she has albuterol nebulizer for use every 4 hours as needed and a handheld albuterol inhaler two puffs every 4 hours as needed for dyspnea that she denies abusing. Singulair 10 mg by mouth daily and Tums as needed for heartburn. ALLERGIES: ASPIRIN (hives), PREDNISONE, questionable reaction. PHYSICAL EXAMINATION: Constitutional: Somewhat barrel-chested, obese, middle-aged woman looking older than stated age. Currently comfortable lying with the head of the bed elevated 30 degrees. No obvious pallor. Vital signs: Heart rate 96 beats per minute (bpm) and regular with frequent irregularities. Blood pressure 95/55 supine (right arm), 102/68 sitting with legs dependent (right arm), 98/62 (left arm sitting). Respiratory rate 16 per minute, O2 saturation 92% on room air. Afebrile. Weight 177 pounds, height 65 inches, body mass index (BMI) 30. Eyes: Normal conjunctivae and lids. No xanthelasma. ENT/mouth: Multiple missing teeth. Normal oral moisture. No central cyanosis. Neck: Trachea midline. Thyroid not enlarged. Neck veins were at the level of the sternal angle. Respiratory: Increased anteroposterior chest diameter with fairly good air entry over both lung theodore with no current abnormal pulmonary adventitious sounds. Cardiovascular: Apical impulse lateral to the midclavicular line sixth intercostal space. S1 and S2 intensity normal. Does have a normal respiratory variation and S2 splitting but audible pulmonary component over the right base, suggestive of pulmonary hypertension.? Questionable S3 gallop but no S4 gallop or rub. Has an apical systolic murmur grade 2/6 that radiates to the left axilla and the left lower sternal border but not to the base. No diastolic murmur. Normal carotid upstrokes with normal volume. No carotid bruits. Upper extremity pulses were symmetrical and normal. Femoral pulses were palpable. Pedal pulses were symmetrically reduced. No varicose veins or current dependent edema. Abdominal aorta not palpable. No bruits. GI: Obese, soft, nontender with no hepatosplenomegaly. Rectal examination not indicated. Musculoskeletal: No obvious joint deformities. Muscular strength and tone appear to be normal. We did not ambulate her at this time. Normal spine curvature. Neurologic/psychologic: Bright, alert and oriented, gave a lucid history. Eye, facial, and extremity movements were symmetrical and normal. No abnormal movements. Skin: Multiple tattoos. No pallor or icterus. No ecchymotic lesions. INVESTIGATIONS: Chest x-ray: Portable upright study performed yesterday at 5:15 p.m. was reviewed independently and shows obvious cardiomegaly even allowing for this technique. Thoracic aorta appeared to be normal. Obvious pulmonary venous congestion with increased interstial markings. Chest CT with contrast performed yesterday: Shows a normal thoracic aorta. Pulmonary trunk was mildly dilated, at least mild to moderately dilated left ventricle and left atrium. Normal right ventricular size and right atrial size. Inferior vena cava was slightly dilated at 2.2 cm. No pericardial effusion. The study showed bilateral hilar adenopathy with findings consistent with interstitial edema but no pleural effusion. Patchy infiltrates bilaterally with largest on the left side anterior segment of the lung measuring 2.9 x 2.3 x 1.8 cm. Findings interpreted by the radiologist as multifocal pneumonitis - Aspiration? Abdominal CT scan was also performed yesterday showing fatty infiltration of the liver, status post cholecystectomy. Mild diffuse pancreatic atrophy. Slightly dilated loops of bowel post her cardiac arrest. No evidence of appendicitis or free air. No ascites. Mild atherosclerotic change of the abdominal aorta. EKGs: Serial studies were reviewed. Emergency room tracing 10/29/2011, as noted above, showed sinus tachycardia 123 with rightward axis and low voltages in keeping with her lung disease. Nonspecific T-wave abnormalities. EKG yesterday upon her present showed sinus tachycardia at 129 bpm with frequent ventricular couplets. New QS pattern from V1 through to V5 with ST elevation suggestive of prior anterior wall myocardial infarction with LV aneurysm. Ambulance EKG strips: Well documented ventricular fibrillation 01/11/2019 at 4:31 p.m. converting to an idioventricular rhythm at 100 bpm post direct current shock of 360 joules. This converted to a narrow complex rhythm by 4:34 p.m.. Blood work: Hemoglobin on admission 15.6 with leukocytosis 17.6 thousand. Normal platelet count. PT/INR 15/1.2. Arterial blood gas this morning on room air showed a pH of 7.4, pCO2 of 34, pO2 of 73. Admission chemistry showed electrolyte balance with potassium 4.2, magnesium 2.2, BUN 6, creatinine 0.8, random glucose 410. Normal liver function studies with albumin 3.3. Ultrasensitive TSH 9.3. Initial troponin I level was 0.02 with a peak reading this morning of 0.18 at 5:24 a.m. Pro-BNP level measured 2594. IMPRESSION/PLAN: 1. Status post cardiac arrest/ventricular fibrillation: Unheralded event with the patient in sitting position. No clear-cut precipitating factors identified. Obviously has had a prior anterior wall infarction with LV aneurysm but no evidence of acute ischemic injury. On monitor overnight, has had frequent isolated unifocal PVCs and couplets but no more complex or symptomatic arrhythmia. She has had complete neurologic recovery. I have recommended transfer for cardiac catheterization/coronary arteriography and subsequent implantable cardioverter defibrillator implant. I have spoken with Dr. Mistry, account development associate, at [facility] in [place], who has accepted her in transfer. At this point, she remains off antiarrhythmic therapy. 2. Abnormal EKG: Tracing consistent with her body habitus and pulmonary disease but undoubtedly shows a new anterior wall myocardial infarction from our last available tracing 2011. 3. Heart failure (systolic and diastolic/chronic): Echocardiogram performed earlier today shows at least a mild to moderately dilated left ventricle with anteroapical infarction with dyskinetic apex and severe impairment of global resting systolic function. Mildly dilated left atrium with left ventricular (LV) diastolic dysfunction and a mildly elevated mean left atrial pressure. Chest x-ray does show congestion and pro-BNP level is elevated, as mentioned. Currently not short of breath at rest, but undoubtedly her effort related dyspnea has likely been at least a partially related to her LV diastolic dysfunction. Interestingly, in the past year, the patient claims this has improved with a substantial weight loss with dietary measures. Currently compensated. Her blood pressure is soft, so we have not introduced a beta-andrea, angiotensin-converting enzyme (RAMIREZ) inhibitor or diuretic therapy at this time. The importance of a modest salt and fluid intake restriction has been discussed. 4. Coronary artery disease ([place] vessel)/prior anterior wall myocardial infarction: The precise timing of her extensive anterior injury is uncertain. Major confusing factor is her separate gastroesophageal reflux disease. However, denies any history of effort related chest, jaw or arm discomforts to suggest angina. Her injury is not acute, as mentioned above. All the same, cardiac catheterization and coronary arteriography is certainly indicated. As mentioned, in light of her soft blood pressure, she has not been placed on a beta andrea or RAMIREZ inhibitor. Currently receiving Lovenox 40 mg subcu daily, and we would start her on atorvastatin 80 mg daily along with antiplatelet therapy. 5. Chronic obstructive pulmonary disease (COPD)/wheezy bronchitis: The crucial importance of smoking cessation has been emphasized. Currently receiving prednisone along with Proventil nebulizer therapy, Pulmicort and combination levofloxacin and piperacillin/tazobactam parenteral antibiotic therapy for suspected aspiration. Current oxygenation on room air is fairly normal and pulmonary auscultation also appeared to be quite normal this morning. 4. Gastroesophageal reflux disease: In light of her acute stress and use of prednisone and need for antiplatelet therapy, she has been started on Protonix 40 mg daily. We have encouraged her continued antireflux measures. I have discussed the above problems with the patient who appears to understand and agrees with our plan. I thank you for allowing me to participate in the care of your patient. GADIEL
[2019-01-15 00:06] LABS: BODY FLUID CULTURE Not Indicated (.); LEGIONELLA ANTIGEN URINE Negative (Negative); ORGANISM ID Not indicated. (.); SPECIMEN SOURCE Urine (.); URINE STREP PNEUMONIAE ANTIGEN Negative (Negative)
--- NOTE | 2019-01-21 22:26 | DS.PDOC ---
Discharge Summary General Date of Admission Jan 11, 2019 at 19:15 Date of Discharge 01/12/19 Discharge Summary PROCEDURES PERFORMED DURING STAY: ECHO: At least mildly dilated left ventricle with dyskinesis of the apex, akinesis of the septum and anterior wall with hypokinesis of the distal inferior and lateral gal[place] but preserved proximal inferior and lateral wall motion. Severe impairment of global resting systolic function - findings in keeping with prior anterior wall myocardial infarction. EF of 20% Moderately dilated left atrium with grade 1 LV diastolic dysfunction and current estimated mean left atrial pressure, mildly elevated. Normal right heart chamber sizes and motion with Doppler evidence of mild pulmonary hypertension. RVSP of 37. Slightly dilated IVC with normal respiratory collapse against an elevated central venous pressure. Normal appearing aortic valve structure with adequate cusp separation but premature cusp closure in keeping with reduced forward stroke volume. Normal aortic root size. Slightly thickened mitral annulus with "low flow" appearance to leaflet excursion but no posterior systolic buckling. Mild mitral insufficiency. Normal appearing tricuspid valve with very mild insufficiency. No apparent intracardiac mass. Very small posterior pericardial effusion. DISCHARGE DIAGNOSES: Ventricular fibrillation cardiac arrest outside hospital Ischemic cardiomyopathy Chronic Systolic and Diastolic congestive heart failure with EF of 20%. Coronary artery disease ([place] vessel)/prior anterior wall myocardial infarction which happened after 2011 Abnormal EKG suggestive of anterior myocardial infarction and left ventricular aneurysm and chronic pulmonary disease. Diabetes COPD/Asthma COMPLICATIONS/CHIEF COMPLAINT: Cardic Arrest,Community Acquired Pneumonia. HISTORY OF PRESENT ILLNESS: See history and physical HOSPITAL COURSE: 43 year old female with PMH of Documented non-insulin dependent diabetes 1 year ago, initially treated but stopped her medication. obesity, gastroesophageal reflux, chronic bronchitis/ asthma, Smoker, history of vasovagal syncope, remote h/o deep venous thrombosis, Degenerative disc disease with sciatica, history of major depression had a witnessed collapse at home. . Apparently she was sitting having just fed her granddaughter when she bent over to play with the child when her noticed she collapsed to the ground unconscious with agonal respiration. Emergency medical services (EMS) were summoned and upon their prompt presentation, she was found unresponsive, apneic and pulseless. Immediate cardiopulmonary resuscitation (CPR) was started. Initial monitor strip showed ventricular fibrillation. The patient was given a single direct current shock, 360 joules, with development of a regular wide complex ventricular rhythm yet initially remained pulse less; CPR was continued. Within minutes a spontaneous pulse was detected and quality assurance monitor chassis showed sinus tachycardia with premature ventricular contractions (PVCs). Blood pressure recorded 150/98. She was confused, but conscious. Transported to [facility] emergency room, initial recorded vital signs of showed [id number], blood pressure 118/83, respiratory rate 17, oxygen (O2) saturation of 98% on supplemental oxygen, and she was afebrile. Ambulance EKG strips: Well documented ventricular fibrillation 01/11/2019 at 4:31 p.m. converting to an idioventricular rhythm at 100 bpm post direct current shock of 360 joules. This converted to a narrow complex rhythm by 4:34 p.m. While in the emergency room, she became more cooperative, complaining of chest tenderness following her chest compression. Remained slightly confused, but was able to ask questions and speak appropriately. She was admitted to the intensive care unit. Cardiology was consulted. Overnight telemetry showed frequent isolated unifocal PVCs and couplets but no more complex or symptomatic arrhythmia. She has had complete neurologic recovery. Investment Accountant Dr Thomas recommended transfer for cardiac catheterization/coronary arteriography and subsequent AICD implantation. Patient [facility]. DISCHARGE MEDICATIONS: Please see below. ALLERGIES: Please see below. PHYSICAL EXAMINATION ON DISCHARGE: VITAL SIGNS: Please see below. GENERAL APPEARANCE: Well-nourished, well-developed, alert oriented x 3, laying down in bed in no distress. HEENT: Normocephalic, atraumatic, moist mucous membranes, anicteric eyes CARDIOVASCULAR: regular rate and rhythm, Normal S1 and S2 , S2 heart sound split, soft systolic murmur at the apex. There are no rubs or gallops. Radial pulses are intact. There is no lower extremity edema LUNGS: She has decreased air entry bilaterally, along with inspiratory wheezing and rhonchi ABDOMEN: Abdomen is soft and nontender on palpation, bowel sounds normal. MUSCULOSKELETAL: Range of motion is intact in all 4 extremities INTEGUMENT:Her skin is not flushed, she does not appear pale, she has multiple tattoos NEUROLOGICAL:Nerves II-12 are grossly intact. Speech is not dysarthric PSYCHIATRIC:Heart and oriented to person, place and time. LABORATORY DATA: Please see below. ACTIVITY: bed rest with bedside commode. DIET: Carb consistent DISPOSITION: Xfer To Acute Hosp. DISCHARGE CONDITION: [Stable]. TIME SPENT ON DISCHARGE: 35 minutes. Vital Signs/I&Os Vital Signs Date Time Temp Pulse Resp B/P (MAP) Pulse Ox O2 Delivery O2 Flow Rate FiO2 01/12/19 13:01 99 98/57 (71) 97 Room Air 01/12/19 12:01 20 01/12/19 08:01 97.0 01/12/19 04:00 2.0 Laboratory Data CBC/BMP Item Value Date Time Influenza Type A (RT-PCR) NEGATIVE 01/11/192138 Influenza Type B (RT-PCR) NEGATIVE 01/11/192138 Urine Legionella Antigen Negative 01/11/192138 Ur Streptococcus pneumoniae Antigen Negative 01/11/192138 Item Value Date Time White Blood Count 18.1 10^3/uL H 01/12/19 0524 Red Blood Count 4.67 10^6/uL 01/12/19 0524 Hemoglobin 14.8 g/dl 01/12/19 0524 Hematocrit 46.2 % 01/12/19 0524 Mean Corpuscular Volume 98.9 fl H 01/12/19 0524 Mean Corpuscular Hemoglobin 31.7 pg 01/12/19 0524 Mean Corpuscular Hemoglobin Concent 32.0 g/dl 01/12/19 0524 Red Cell Distribution Width 12.3 % 01/12/19 0524 Platelet Count 208 10^3/uL # 01/12/19 0524 Nucleated Red Blood Cells % (auto) 0.0 % 01/12/19 0524 Sodium Level 137 MEQ/L 01/12/19 0524 Potassium Level 4.3 MEQ/L 01/12/19 0524 Chloride Level 107 MEQ/L 01/12/19 0524 Anion Gap 9 MEQ/L 01/12/19 0524 Blood Urea Nitrogen 7 MG/DL 01/12/19 0524 Creatinine 0.52 MG/DL L 01/12/19 0524 Carbon Dioxide Level 21 MEQ/L 01/12/19 0524 Glomerular Filtration Rate > 60.0 01/12/19 0524 Fasting Glucose 304 MG/DL H 01/12/19 0524 Calcium Level 7.5 MG/DL L 01/12/19 0524 Magnesium Level 2.1 MG/DL 01/12/19 0524 Total Bilirubin 0.6 MG/DL 01/12/19 0524 Aspartate Amino Transf (AST/SGOT) 29 U/L 01/12/19 0524 Alanine Aminotransferase (ALT/SGPT) 37 U/L 01/12/19 0524 Alkaline Phosphatase 80 U/L 01/12/19 0524 Troponin I 0.18 NG/ML H 01/12/19 0524 Total Protein 6.8 GM/DL 01/12/19 0524 Albumin 2.8 GM/DL L 01/12/19 0524 Triglycerides Level 43 MG/DL 01/12/19 0524 Total Cholesterol 116 MG/DL 01/12/19 0524 LDL Cholesterol 62 MG/DL 01/12/19 0524 Albumin/Globulin Ratio 0.70 L 01/12/19 0524 Non-HDL Cholesterol (LDL + VLDL) 71 MG/DL 01/12/19 0524 Total HDL Cholesterol 45 MG/DL 01/12/19 0524 Cholesterol/HDL Ratio 2.577 01/12/19 0524 Microbiology Microbiology 01/11/19 Blood Culture - Preliminary, Resulted No Growth after 48 hours. All Specime... 01/11/19 Blood Culture - Preliminary, Resulted No Growth after 48 hours. All Specime... Discharge Medications Scheduled PRN Albuterol Sulf (Albuterol Sulfate) 2.5 Mg/3 Ml Nebu, 1 INH INH Q4H PRN for SOB/WHEEZING, (Reported) Albuterol Sulfate (Ventolin Hfa) 108 Mcg/Act Aer, 2 PUFFS INH Q4H PRN for SOB/WHEEZING, (Reported) Allergies Coded Allergies: aspirin (Verified Adverse Reaction, Mild, N/V, 12/15/18) prednisone (Verified Adverse Reaction, Mild, N/V, 12/15/18) CATHERINE SILVEIRA MD Jan 14, 2019 06:39
== END 2019-01-12 14:15 | disposition short-term general hospital (02) | DRG 196 ==
LOC: M ED 16:55 → EDBD 16:55 → M ED INP 19:15 → M ICU 21:05
PROVIDERS: ADMIT Internal Medicine; ATTEND Internal Medicine Nephrology
DX: I49.01 Ventricular fibrillation (principal); I50.42 Chronic combined systolic (congestive) and diastolic (congestive) heart failure; E11.65 Type 2 diabetes mellitus with hyperglycemia; J45.909 Unspecified asthma, uncomplicated; I25.5 Ischemic cardiomyopathy; I25.10 Atherosclerotic heart disease of native coronary artery without angina pectoris; I25.2 Old myocardial infarction; Z79.4 Long term (current) use of insulin; E66.9 Obesity, unspecified; K21.9 Gastro-esophageal reflux disease without esophagitis; F17.200 Nicotine dependence, unspecified, uncomplicated; Z88.6 Allergy status to analgesic agent; Z88.8 Allergy status to other drugs, medicaments and biological substances; Z91.14 Patient's other noncompliance with medication regimen; I46.9 Cardiac arrest, cause unspecified

== ENCOUNTER 2019-01-28 11:59 | Emergency (ER) | payer OTHER ==
[~2019-01-28] VITALS: Ht 162.6 cm; Wt 81.8 kg
[2019-01-28] MEDS ORDERED: NS 1,000 ML IV SCH (12:20)
[2019-01-28] MEDS ORDERED: MORPHINE 4 MG/ML 1ML VIAL/SYRINGE (J2270) IV PRN (12:30)
--- NOTE | 2019-01-28 12:43 | REP ---
Clinical: Chest pain. Technique: PA and lateral. Comparison: 01/11/2019. Findings: Right middle lobe atelectasis/infiltrate and small associated right pleural reaction requires followup to resolution. No pneumothorax. Mediastinum and cardiac silhouette stable. Pacemaker noted. Skeletal structures intact. Impression: Right middle lobe atelectasis/infiltrate. Follow-up to resolution. Electronically Signed by Marcel Dover MD 01/28/2019 12:34 P
[2019-01-28] MEDS ORDERED: SING10TA32 PO (12:56)
[2019-01-28] MEDS ORDERED: LISI-1046 PO (12:56)
[2019-01-28] MEDS ORDERED: METF500T13 PO (12:56)
[2019-01-28] MEDS ORDERED: METO1TAB32 PO (12:56)
[2019-01-28] MEDS ORDERED: ATOR80TA59 PO (12:56)
[2019-01-28] MEDS ORDERED: AMOX875T2 PO (12:56)
[2019-01-28] MEDS ORDERED: CLOP75TA2 PO (12:56)
[2019-01-28 13:59] LABS: BASO % 0.5 % (0.0-1.0); EOS # 0.1 10^3/uL (0.0-0.5); EOS % 2.1 % (0.0-3.0); HEMATOCRIT 39.1 % (36.0-47.0); HEMOGLOBIN 12.9 g/dl (12.0-15.5); LYMPH # 2.2 10^3/uL (1.5-5.0); LYMPH % 35.2 % (24.0-44.0); MEAN CORPUSCULAR HEMOGLOBIN 32.2 pg (27.0-33.0); MEAN CORPUSCULAR VOLUME 97.5 fl (80.0-96.0); MONO # 0.5 10^3/uL (0.0-0.8); MONO % 7.7 % (0.0-5.0); NEUTROPHILS # 3.3 10^3/uL (1.5-8.5); NEUTROPHILS % 54.3 % (36.0-66.0); PLATELET COUNT, AUTOMATED 247 10^3/uL (150-450); RED BLOOD COUNT 4.01 10^6/uL (4.00-5.40); WHITE BLOOD COUNT 6.1 10^3/uL (4.0-10.0)
[2019-01-28 14:11] LABS: INR 1.11
[2019-01-28 14:29] LABS: ALBUMIN 3.3 GM/DL (3.2-5.2); ALT/SGPT 32 U/L (12-78); BILIRUBIN,DIRECT 0.1 MG/DL (0.0-0.2); BILIRUBIN,TOTAL 0.4 MG/DL (0.2-1.0); BLOOD UREA NITROGEN 6 MG/DL (7-18); CALCIUM LEVEL 8.6 MG/DL (8.5-10.1); CARBON DIOXIDE LEVEL 32 MEQ/L (21-32); CHLORIDE LEVEL 103 MEQ/L (98-107); CK-MB VALUE MASS < 1.0 NG/ML (<3.6); CPK CREATINE PHOSPHOKINASE 44 U/L (26-192); CREATININE FOR GFR 0.48 MG/DL (0.55-1.30); GLOMERULAR FILTRATION RATE > 60.0 (>58); GLUCOSE, FASTING 178 MG/DL (70-100); MB/CK RELATIVE INDEX 2.27 (< OR =4); POTASSIUM SERUM 4.5 MEQ/L (3.5-5.1); SODIUM LEVEL 140 MEQ/L (136-145); TOTAL PROTEIN 6.9 GM/DL (6.4-8.2); TROPONIN I < 0.02 NG/ML (< 0.10)
[2019-01-28] MEDS ORDERED: NORC1TAB7 PO (14:41)
[2019-01-28 14:42] VITALS: BP 125/69
--- NOTE | 2019-01-28 19:47 | ECGEPIP ---
[facility] - ED Test Date: 2019-01-28 Pat Name: TEMI JACOB Department: Room: - Gender: Female Vice President Of Business Development: : 1975 Requested By: VIOLET Coleman PA-C Order Number: [id number] Reading MD: Deangelo Vera Measurements Intervals [place] Rate: 75 P: 29 MA: 157 QRS: 28 QRSD: 97 T: 89 QT: 393 QTc: 439 Interpretive Statements SINUS RHYTHM PRIOR ANTERIOR MYOCARDIAL INFARCTION NONSPECIFIC T WAVE ABNORMALITIES RATE CHANGE COMPARED TO 01/11/19 Electronically Signed on 01-28-2019 19:46:48 EST by Deangelo Vera
--- NOTE | 2019-01-30 08:14 | ED PDOC ---
Post-Departure Follow-Up roxy meléndez faxed fomral report of cxr for fu agnesg Alicia Torres MD Jan 30, 2019 08:14
== END 2019-01-28 14:53 | disposition home or self-care (01) ==
LOC: M ED 11:59
DX: R07.9 Chest pain, unspecified (principal); R94.31 Abnormal electrocardiogram [ECG] [EKG]; J98.11 Atelectasis; I11.9 Hypertensive heart disease without heart failure; E78.5 Hyperlipidemia, unspecified; K21.9 Gastro-esophageal reflux disease without esophagitis; J44.9 Chronic obstructive pulmonary disease, unspecified; F17.210 Nicotine dependence, cigarettes, uncomplicated; Z88.6 Allergy status to analgesic agent; Z88.8 Allergy status to other drugs, medicaments and biological substances; Z79.51 Long term (current) use of inhaled steroids; Z79.84 Long term (current) use of oral hypoglycemic drugs; Z79.899 Other long term (current) drug therapy
CPT/HCPCS: 71046; 80048; 80076; 82550; 82553; 85025; 85610; 93005; 93041; 94760; 96374; 99284; J2270

== ENCOUNTER → 2019-04-24 | Outpatient (CLI) | payer OTHER ==
[~2019-04-24] MED LIST changes: +AMOX875T2 PO; +ATOR80TA59 PO; +CLOP75TA2 PO; +LISI-1046 PO; +METO1TAB32 PO
[2019-04-24 12:45] LABS: BASO % 0.3 % (0.0-1.0); EOS # 0.2 10^3/uL (0.0-0.5); HEMATOCRIT 44.7 % (36.0-47.0); HEMOGLOBIN 15.1 g/dl (12.0-15.5); LYMPH # 2.8 10^3/uL (1.5-5.0); LYMPH % 32.7 % (24.0-44.0); MEAN CORPUSCULAR HEMOGLOBIN 31.5 pg (27.0-33.0); MEAN CORPUSCULAR HGB CONC 33.8 g/dl (32.0-36.5); MEAN CORPUSCULAR VOLUME 93.3 fl (80.0-96.0); MONO # 0.4 10^3/uL (0.0-0.8); NEUTROPHILS # 5.2 10^3/uL (1.5-8.5); NEUTROPHILS % 59.5 % (36.0-66.0); PLATELET COUNT, AUTOMATED 211 10^3/uL (150-450); RED BLOOD COUNT 4.79 10^6/uL (4.00-5.40); WHITE BLOOD COUNT 8.7 10^3/uL (4.0-10.0)
[2019-04-24 13:18] LABS: ALBUMIN 3.2 GM/DL (3.2-5.2); ALT/SGPT 17 U/L (12-78); BILIRUBIN,TOTAL 0.5 MG/DL (0.2-1.0); BLOOD UREA NITROGEN 6 MG/DL (7-18); CALCIUM LEVEL 8.3 MG/DL (8.5-10.1); CARBON DIOXIDE LEVEL 30 MEQ/L (21-32); CHLORIDE LEVEL 103 MEQ/L (98-107); CREATININE FOR GFR 0.59 MG/DL (0.55-1.30); GLOMERULAR FILTRATION RATE > 60.0 (>58); GLUCOSE, FASTING 315 MG/DL (70-100); HCG, SERUM QUANTITATIVE < 1.0 MIU/ML; NT-PRO BNP 974 PG/ML (<125); POTASSIUM SERUM 3.9 MEQ/L (3.5-5.1); SODIUM LEVEL 138 MEQ/L (136-145)
== END ==
LOC: M LAB 12:18
PROVIDERS: ATTEND Internal Medicine Cardiovascular Disease
DX: I25.5 Ischemic cardiomyopathy (principal); I25.10 Atherosclerotic heart disease of native coronary artery without angina pectoris

== ENCOUNTER → 2019-05-03 | Outpatient (REF) | payer OTHER ==
[2019-05-03 17:14] LABS: ALBUMIN 3.2 GM/DL (3.2-5.2); ALT/SGPT 18 U/L (12-78); BILIRUBIN,TOTAL 0.5 MG/DL (0.2-1.0); BLOOD UREA NITROGEN 6 MG/DL (7-18); CALCIUM LEVEL 8.3 MG/DL (8.5-10.1); CARBON DIOXIDE LEVEL 29 MEQ/L (21-32); CHLORIDE LEVEL 103 MEQ/L (98-107); FREE T4 0.81 NG/DL (0.76-1.46); GLOMERULAR FILTRATION RATE > 60.0 (>58); GLUCOSE, FASTING 269 MG/DL (70-100); HCG, SERUM QUALITATIVE NEGATIVE (NEGATIVE); POTASSIUM SERUM 3.7 MEQ/L (3.5-5.1); SODIUM LEVEL 137 MEQ/L (136-145); TOTAL PROTEIN 7.2 GM/DL (6.4-8.2)
[2019-05-03 17:15] LABS: FOLLICLE STIMULATING HORMONE 3.5 mIU/mL; LUTEINIZING HORMONE 5.9 mIU/mL; TOTAL 25(OH) VITAMIN D 12.3 NG/ML (30.0-100.0)
[2019-05-03 17:27] LABS: HEMOGLOBIN A1c 9.4 %
[2019-05-03 17:32] LABS: BASO % 0.3 % (0.0-1.0); EOS # 0.2 10^3/uL (0.0-0.5); EOS % 2.9 % (0.0-3.0); HEMATOCRIT 44.5 % (36.0-47.0); HEMOGLOBIN 15.2 g/dl (12.0-15.5); LYMPH # 2.2 10^3/uL (1.5-5.0); MEAN CORPUSCULAR HEMOGLOBIN 32.4 pg (27.0-33.0); MEAN CORPUSCULAR HGB CONC 34.2 g/dl (32.0-36.5); MEAN CORPUSCULAR VOLUME 94.9 fl (80.0-96.0); MONO # 0.4 10^3/uL (0.0-0.8); MONO % 5.3 % (0.0-5.0); NEUTROPHILS # 5.1 10^3/uL (1.5-8.5); PLATELET COUNT, AUTOMATED 211 10^3/uL (150-450); RED BLOOD COUNT 4.69 10^6/uL (4.00-5.40)
== END ==
LOC: M LAB REF 16:26
PROVIDERS: ATTEND Physician Assistant
DX: Z13.9 Encounter for screening, unspecified (principal); F51.04 Psychophysiologic insomnia; N91.2 Amenorrhea, unspecified; R73.9 Hyperglycemia, unspecified; E55.9 Vitamin D deficiency, unspecified; Z83.49 Family history of other endocrine, nutritional and metabolic diseases

== ENCOUNTER 2020-06-22 16:20 | Emergency (ER) | payer OTHER ==
[~2020-06-22] VITALS: Ht 160 cm; Wt 80.2 kg
[2020-06-22 16:20] VITALS: BP 127/76
[~2020-06-22 16:20] MED LIST changes: -CLIN150C14 PO; +CLIN150C15 PO; -LISI-1046 PO; +LISI2.5T2 PO
== END 2020-06-22 16:46 | disposition left against medical advice (07) ==
LOC: M ED 16:20
DX: Z53.21 Procedure and treatment not carried out due to patient leaving prior to being seen by health care provider (principal)

== ENCOUNTER 2021-06-10 16:35 | Emergency (ER) | payer OTHER ==
[~2021-06-10] VITALS: Ht 162.6 cm; Wt 76.4 kg
[2021-06-10 16:35] VITALS: BP 135/78
[~2021-06-10 16:35] MED LIST changes: -CLIN150C15 PO; +CLIN150C17 PO; -LISI2.5T2 PO; +LISI2.5T9 PO
== END 2021-06-10 18:11 | disposition left against medical advice (07) ==
LOC: M ED 16:35
DX: Z53.21 Procedure and treatment not carried out due to patient leaving prior to being seen by health care provider (principal)

== ENCOUNTER → 2022-04-22 | Outpatient (REF) | payer OTHER ==
[~2022-04-22] MED LIST changes: +ALBU2.5V10 INH; -ALBU83IN INH; +MONT-5 PO; -SING10TA32 PO
== END ==
LOC: M LAB REF 16:31
PROVIDERS: ATTEND Physician Assistant
DX: J02.9 Acute pharyngitis, unspecified (principal)

== ENCOUNTER 2022-07-21 22:16 | Emergency (ER) | payer OTHER ==
[~2022-07-21] VITALS: Ht 162.6 cm; Wt 74.5 kg
[2022-07-21] MEDS ORDERED: ONDANSETRON 4MG 2ML VIAL IV ONE (22:55)
[2022-07-21] MEDS ORDERED: MORPHINE 2 MG/ML 1ML VIAL IV PRN (22:55)
[2022-07-21] MEDS ORDERED: ISOVUE-370 76% 100ML VIAL As Ordered ONE (22:58)
[2022-07-21 23:16] LABS: BASO % 0.3 % (0.0-1.0); EOS # 0.1 10^3/uL (0.0-0.5); EOS % 1.4 % (0.0-3.0); HEMATOCRIT 43.5 % (36.0-47.0); HEMOGLOBIN 15.8 g/dl (12.0-15.5); LYMPH # 2.6 10^3/uL (1.5-5.0); LYMPH % 29.6 % (24.0-44.0); MEAN CORPUSCULAR HEMOGLOBIN 33.4 pg (27.0-33.0); MEAN CORPUSCULAR HGB CONC 36.3 g/dl (32.0-36.5); MONO # 0.7 10^3/uL (0.0-0.8); MONO % 7.3 % (2.0-8.0); NEUTROPHILS # 5.4 10^3/uL (1.5-8.5); NEUTROPHILS % 61.2 % (36.0-66.0); PLATELET COUNT, AUTOMATED 173 10^3/uL (150-450); RED BLOOD COUNT 4.73 10^6/uL (4.00-5.40); WHITE BLOOD COUNT 8.9 10^3/uL (4.0-10.0)
[2022-07-21 23:42] LABS: BLOOD UREA NITROGEN 6 MG/DL (9-23); CALCIUM LEVEL 9.2 MG/DL (8.5-10.1); CARBON DIOXIDE LEVEL 28 MMOL/L (20-31); CHLORIDE LEVEL 100 MMOL/L (98-107); CREATININE FOR GFR 0.42 MG/DL (0.55-1.30); GLOMERULAR FILTRATION RATE > 60.0 (>58); GLUCOSE, FASTING 395 MG/DL (60-100); POTASSIUM SERUM 3.3 MMOL/L (3.5-5.1); SODIUM LEVEL 136 MMOL/L (136-145)
[2022-07-22] MEDS ORDERED: CLINDAMYCIN 600 MG in IV 1 EA IV ONE (02:20)
[2022-07-22] MEDS ORDERED: CLEO300C2 PO (03:05)
[2022-07-22 03:06] VITALS: BP 124/88; TEMP 98.1; O2SAT 98
== END 2022-07-22 03:12 | disposition left against medical advice (07) ==
LOC: M ED 22:16
DX: K04.7 Periapical abscess without sinus (principal); L03.211 Cellulitis of face; I25.2 Old myocardial infarction; E11.9 Type 2 diabetes mellitus without complications; K21.9 Gastro-esophageal reflux disease without esophagitis; F10.10 Alcohol abuse, uncomplicated; F17.200 Nicotine dependence, unspecified, uncomplicated; Z86.79 Personal history of other diseases of the circulatory system; Z88.6 Allergy status to analgesic agent; Z88.8 Allergy status to other drugs, medicaments and biological substances; Z79.52 Long term (current) use of systemic steroids; Z79.899 Other long term (current) drug therapy
CPT/HCPCS: 70487; 80048; 83605; 85025; 86140; 87040; 96365; 96375; 99284; J2405; Q9967; S0077

== ENCOUNTER → 2022-08-30 | Outpatient (CLI) | payer OTHER ==
[~2022-08-30] MED LIST changes: +CLEO300C2 PO
== END ==
LOC: M RAD 10:27
PROVIDERS: ATTEND Physician Assistant
DX: M46.97 Unspecified inflammatory spondylopathy, lumbosacral region (principal); S29.9XXA Unspecified injury of thorax, initial encounter; M47.817 Spondylosis without myelopathy or radiculopathy, lumbosacral region; X58.XXXA Exposure to other specified factors, initial encounter; Y92.9 Unspecified place or not applicable; Y93.9 Activity, unspecified; Y99.9 Unspecified external cause status

== ENCOUNTER → 2022-09-01 | Outpatient (CLI) | payer OTHER ==
[2022-09-01 14:30] LABS: HEMATOCRIT 47.1 % (36.0-47.0); HEMOGLOBIN 16.4 g/dl (12.0-15.5); MEAN CORPUSCULAR HEMOGLOBIN 32.9 pg (27.0-33.0); MEAN CORPUSCULAR HGB CONC 34.8 g/dl (32.0-36.5); MEAN CORPUSCULAR VOLUME 94.6 fl (80.0-96.0); PLATELET COUNT, AUTOMATED 221 10^3/uL (150-450); RED BLOOD COUNT 4.98 10^6/uL (4.00-5.40); WHITE BLOOD COUNT 8.7 10^3/uL (4.0-10.0)
[2022-09-01 15:06] LABS: ALBUMIN 3.4 G/DL (3.2-5.2); ALKALINE PHOSPHATASE 133 U/L (46-116); ALT/SGPT 11 U/L (7.0-40); AST/SGOT < 8 U/L (<34); BILIRUBIN,TOTAL 0.7 MG/DL (0.3-1.2); BLOOD UREA NITROGEN 6 MG/DL (9-23); CALCIUM LEVEL 8.7 MG/DL (8.5-10.1); CARBON DIOXIDE LEVEL 34 MMOL/L (20-31); CHLORIDE LEVEL 99 MMOL/L (98-107); CHOLESTEROL LEVEL 179 MG/DL (<200); CHOLESTEROL RISK RATIO 4.69 (<5); CREATININE FOR GFR 0.41 MG/DL (0.55-1.30); FREE T4 1.17 NG/DL (0.89-1.76); GLOMERULAR FILTRATION RATE > 60.0 (>58); GLUCOSE, FASTING 318 MG/DL (60-100); HDL CHOLESTEROL 38.1 MG/DL (>40); LDL CHOLESTEROL 112.1 MG/DL (<100); NON-HDL-C 140.9 MG/DL; POTASSIUM SERUM 3.2 MMOL/L (3.5-5.1); SODIUM LEVEL 140 MMOL/L (136-145); THYROID STIMULATING HORMONE 1.667 uIU/ML (0.55-4.78); TOTAL 25(OH) VITAMIN D 13.2 NG/ML (20.0-100.0); TOTAL PROTEIN 6.6 G/DL (5.7-8.2); TRIGLYCERIDES LEVEL 144 MG/DL (<150)
[2022-09-01 15:14] LABS: HEMOGLOBIN A1c 11.3 % (4.0-6.0)
== END ==
LOC: M LAB 14:06
PROVIDERS: ATTEND Physician Assistant
DX: R73.9 Hyperglycemia, unspecified (principal); E55.9 Vitamin D deficiency, unspecified

== ENCOUNTER → 2022-10-19 | Outpatient (REF) | payer OTHER | LOC: M LAB REF 17:26 | PROVIDERS: ATTEND Physician Assistant | DX: E87.6 Hypokalemia (principal) ==

== ENCOUNTER → 2023-03-17 | Outpatient (REF) | payer OTHER ==
[2023-03-17 19:30] LABS: CREATININE, URINE 253.1 MG/DL; MAU/CREAT RATIO 6.7 MCG/MG (0.0-30.0)
== END ==
LOC: M LAB REF 16:25
PROVIDERS: ATTEND Physician Assistant
DX: E11.65 Type 2 diabetes mellitus with hyperglycemia (principal)

== ENCOUNTER → 2023-04-24 | Outpatient (REF) | payer OTHER | LOC: M LAB REF 17:24 | PROVIDERS: ATTEND Physician Assistant | DX: Z12.4 Encounter for screening for malignant neoplasm of cervix (principal); Z11.3 Encounter for screening for infections with a predominantly sexual mode of transmission ==

== ENCOUNTER → 2023-05-04 | Outpatient (CLI) | payer OTHER ==
[2023-05-04 12:10] LABS: CHOLESTEROL RISK RATIO 4.73 (<5); HDL CHOLESTEROL 33.8 MG/DL (>40); LDL CHOLESTEROL 90.6 MG/DL (<100); NON-HDL-C 126.2 MG/DL
[2023-05-04 12:13] LABS: TOTAL 25(OH) VITAMIN D 37.1 NG/ML (20.0-100.0)
== END ==
LOC: M LAB 11:14
PROVIDERS: ATTEND Physician Assistant
DX: E78.5 Hyperlipidemia, unspecified (principal); E55.9 Vitamin D deficiency, unspecified

== ENCOUNTER → 2023-10-26 | Outpatient (CLI) | payer OTHER ==
[2023-10-26 09:27] LABS: HEMATOCRIT 40.3 % (36.0-47.0); HEMOGLOBIN 13.5 g/dl (12.0-15.5); MEAN CORPUSCULAR HEMOGLOBIN 31.2 pg (27.0-33.0); MEAN CORPUSCULAR HGB CONC 33.5 g/dl (32.0-36.5); MEAN CORPUSCULAR VOLUME 93.1 fl (80.0-96.0); PLATELET COUNT, AUTOMATED 250 10^3/uL (150-450); RED BLOOD COUNT 4.33 10^6/uL (4.00-5.40)
[2023-10-26 09:44] LABS: HEMOGLOBIN A1c 8.2 % (4.0-6.0)
[2023-10-26 09:55] LABS: ALBUMIN 3.5 G/DL (3.2-5.2); ALKALINE PHOSPHATASE 112 U/L (46-116); ALT/SGPT 11 U/L (7.0-40); AST/SGOT 10 U/L (<34); BILIRUBIN,TOTAL 0.3 MG/DL (0.3-1.2); BLOOD UREA NITROGEN 8 MG/DL (9-23); CALCIUM LEVEL 8.9 MG/DL (8.5-10.1); CARBON DIOXIDE LEVEL 31 MMOL/L (20-31); CHLORIDE LEVEL 104 MMOL/L (98-107); CHOLESTEROL LEVEL 154 MG/DL (<200); CHOLESTEROL RISK RATIO 4.12 (<5); CREATININE FOR GFR 0.48 MG/DL (0.55-1.30); GLOMERULAR FILTRATION RATE > 60.0 (>58); GLUCOSE, FASTING 216 MG/DL (60-100); HDL CHOLESTEROL 37.3 MG/DL (>40); LDL CHOLESTEROL 97.7 MG/DL (<100); NON-HDL-C 116.7 MG/DL; POTASSIUM SERUM 4.5 MMOL/L (3.5-5.1); SODIUM LEVEL 137 MMOL/L (136-145); TOTAL PROTEIN 7.2 G/DL (5.7-8.2); TRIGLYCERIDES LEVEL 95 MG/DL (<150)
[2023-10-26 10:27] LABS: HIV 1&2 SCREEN NEGATIVE (NEGATIVE)
== END ==
LOC: M LAB 08:45
PROVIDERS: ATTEND Physician Assistant
DX: E11.65 Type 2 diabetes mellitus with hyperglycemia (principal); Z11.4 Encounter for screening for human immunodeficiency virus [HIV]

== ENCOUNTER → 2024-02-28 | Outpatient (REF) | payer OTHER | LOC: M LAB REF 16:16 | PROVIDERS: ATTEND Physician Assistant | DX: J02.9 Acute pharyngitis, unspecified (principal) ==

== ENCOUNTER 2024-03-02 19:46 | Emergency (ER) | payer OTHER ==
[~2024-03-02] VITALS: Ht 162.6 cm; Wt 69.4 kg
[2024-03-02 20:00] VITALS: BP 107/63; TEMP 98.4; O2SAT 96
[2024-03-02] MEDS ORDERED: AZIT200S30 PO (22:08)
[2024-03-02] MEDS: AZITHROMYCIN SUSP 200MG/5ML 30ML BOTTLE PO ONE (22:40)
== END 2024-03-02 22:47 | disposition home or self-care (01) ==
LOC: M ED 19:46
DX: J02.9 Acute pharyngitis, unspecified (principal); A49.3 Mycoplasma infection, unspecified site; E11.9 Type 2 diabetes mellitus without complications; E78.5 Hyperlipidemia, unspecified; H44.9 Unspecified disorder of globe; F32.A Depression, unspecified; F41.9 Anxiety disorder, unspecified; J44.9 Chronic obstructive pulmonary disease, unspecified; Z79.84 Long term (current) use of oral hypoglycemic drugs; Z86.79 Personal history of other diseases of the circulatory system; Z88.6 Allergy status to analgesic agent; Z88.8 Allergy status to other drugs, medicaments and biological substances; Z79.52 Long term (current) use of systemic steroids; Z79.899 Other long term (current) drug therapy

== ENCOUNTER → 2024-05-20 | Outpatient (CLI) | payer OTHER ==
[~2024-05-20] MED LIST changes: +AZIT200S30 PO
[2024-05-20 14:23] LABS: HEMATOCRIT 44.2 % (36.0-47.0); HEMOGLOBIN 14.7 g/dl (12.0-15.5); MEAN CORPUSCULAR HEMOGLOBIN 32.5 pg (27.0-33.0); MEAN CORPUSCULAR HGB CONC 33.3 g/dl (32.0-36.5); MEAN CORPUSCULAR VOLUME 97.6 fl (80.0-96.0); PLATELET COUNT, AUTOMATED 245 10^3/uL (150-450); RED BLOOD COUNT 4.53 10^6/uL (4.00-5.40); WHITE BLOOD COUNT 8.3 10^3/uL (4.0-10.0)
[2024-05-20 14:43] LABS: CREATININE, URINE 168.1 MG/DL; MAU/CREAT RATIO 3.5 MCG/MG (0.0-30.0)
[2024-05-20 14:44] LABS: ALBUMIN 3.6 G/DL (3.2-5.2); ALKALINE PHOSPHATASE 99 U/L (35-104); ALT/SGPT 12 U/L (7.0-40); AST/SGOT 10 U/L (<34); BILIRUBIN,TOTAL 0.4 MG/DL (0.3-1.2); BLOOD UREA NITROGEN 7 MG/DL (9-23); CALCIUM LEVEL 8.7 MG/DL (8.5-10.1); CARBON DIOXIDE LEVEL 31 MMOL/L (20-31); CHLORIDE LEVEL 103 MMOL/L (98-107); CHOLESTEROL LEVEL 154 MG/DL (<200); CHOLESTEROL RISK RATIO 4.03 (<5); CREATININE FOR GFR 0.43 MG/DL (0.55-1.30); GLOMERULAR FILTRATION RATE > 90.0 (>58); GLUCOSE, FASTING 162 MG/DL (60-100); HDL CHOLESTEROL 38.2 MG/DL (>40); LDL CHOLESTEROL 94.8 MG/DL (<100); NON-HDL-C 115.8 MG/DL; POTASSIUM SERUM 3.7 MMOL/L (3.5-5.1); SODIUM LEVEL 140 MMOL/L (136-145); TOTAL PROTEIN 6.9 G/DL (5.7-8.2); TRIGLYCERIDES LEVEL 105 MG/DL (<150)
== END ==
LOC: M WUC 12:37
PROVIDERS: ATTEND Physician Assistant
DX: E11.3493 Type 2 diabetes mellitus with severe nonproliferative diabetic retinopathy without macular edema, bilateral (principal)

== ENCOUNTER → 2024-10-10 | Outpatient (CLI) | payer OTHER ==
[2024-10-10 13:11] LABS: ALT/SGPT 19 U/L (7.0-40); AST/SGOT 17 U/L (<34); CALCIUM LEVEL 8.8 MG/DL (8.5-10.1); CARBON DIOXIDE LEVEL 30 MMOL/L (20-31); CHLORIDE LEVEL 106 MMOL/L (98-107); CHOLESTEROL LEVEL 152 MG/DL (<200); CHOLESTEROL RISK RATIO 3.15 (<5); CREATININE FOR GFR 0.43 MG/DL (0.55-1.30); GLOMERULAR FILTRATION RATE > 90.0 (>58); LDL CHOLESTEROL 83.2 MG/DL (<100); NON-HDL-C 103.8 MG/DL; POTASSIUM SERUM 3.5 MMOL/L (3.5-5.1); SODIUM LEVEL 144 MMOL/L (136-145); TRIGLYCERIDES LEVEL 103 MG/DL (<150)
[2024-10-10 13:13] LABS: TOTAL 25(OH) VITAMIN D 9.7 NG/ML (20.0-100.0)
[2024-10-10 13:29] LABS: ESTIMATED AVERAGE GLUCOSE 148.0 MG/DL (60-110)
== END ==
LOC: M WUC 08:45
PROVIDERS: ATTEND Nurse Practitioner Family
DX: E78.5 Hyperlipidemia, unspecified (principal); E55.9 Vitamin D deficiency, unspecified; E11.3499 Type 2 diabetes mellitus with severe nonproliferative diabetic retinopathy without macular edema, unspecified eye